=== PATIENT | female | born 1980 | race Caucasian/White ===

== ENCOUNTER 2017-12-24 12:19 | Emergency (ER) | payer BC, OTHER ==
[2017-12-24] MEDS ORDERED: Tetan/Diph/Pertus SYR(Tdap)* 0.5 ML SYR(BOOSTRIX) use SYR IM ONE (14:01)
[2017-12-24] MEDS ORDERED: Ibuprofen TAB* 600 MG PO ONE (14:02)
--- NOTE | 2017-12-24 14:04 | UC ---
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 Patient has 4 puncture wounds in the mid center of her posterior right calf. Neuro motor and circulation is intact distally there is no active bleeding. She does have some swelling and bruising and tenderness at the site of the injury - History of Current Complaint Chief Complaint: UCBiteInjury Stated Complaint: DOG BITE/RT LEG Time Seen by Provider: 12/24/17 13:57 Hx Obtained From: Patient Hx Last Menstrual Period: 12/20/17 ?: No Pain Intensity: 6 Pain Scale Used: 0-10 Numeric Onset/Duration: Sudden Onset Type of Bite: Animal Has Animal Been Immunized?: Yes Character: Puncture Aggravating Factor(s): Exertion Alleviating Factor(s): Nothing Associated Signs And Symptoms: Positive: Swelling Hx of Bite: Unprovoked Animal Available for Observation: Yes Animal Control Notified: Yes - Allergies/Home Medications Allergies/Adverse Reactions: Allergies Allergy/AdvReac Type Severity Reaction Status Date / Time No Known Allergies Allergy Verified 12/24/17 13:35 Home Medications: Home Medications FLUoxetine CAP* [Prozac CAP*] 10 mg PO DAILY 12/24/17 [History Confirmed ] PMH/Surg Hx/FS Hx/Imm Hx Previously Healthy: Yes Psychological History: Anxiety - Surgical History Surgical History: None - Family History Known Family History: Positive: None - Social History Occupation: Employed Full-time Lives: With Family Alcohol Use: None Substance Use Type: None Smoking Status (MU): Former Smoker Type: Cigarettes Have You Smoked in the Last Year: No When Did the Patient Quit Smoking/Using Tobacco: 2013 Review of Systems Constitutional: Negative Skin: Other - puncture wounds to the back of her right calf from a dog bite Eyes: Negative ENT: Negative Respiratory: Negative Cardiovascular: Negative Gastrointestinal: Negative Genitourinary: Negative Motor: Negative Neurovascular: Negative Musculoskeletal: Negative Neurological: Negative Psychological: Negative Is Patient Immunocompromised?: No All Other Systems Reviewed And Are Negative: Yes Physical Exam Triage Information Reviewed: Yes Appearance: Well-Appearing, Well-Nourished, Pain Distress - mild Vital Signs: Initial Vital Signs Temp 97.9 F 12/24/17 13:35 Pulse 61 12/24/17 13:35 Resp 16 12/24/17 13:35 BP 117/75 12/24/17 13:35 Pulse Ox 100 12/24/17 13:35 Vital Signs Reviewed: Yes Eye Exam: Normal Eyes: Positive: Conjunctiva Clear ENT Exam: Normal ENT: Positive: Normal ENT inspection, Hearing grossly normal. Negative: Muffled voice, Hoarse voice, Dental tenderness Dental Exam: Normal Neck exam: Normal Neck: Positive: Supple, Nontender Respiratory Exam: Normal Respiratory: Positive: Chest non-tender, No respiratory distress, No accessory muscle use Cardiovascular Exam: Normal Cardiovascular: Positive: RRR, No Murmur, Pulses Normal, Brisk Capillary Refill Musculoskeletal Exam: Other Musculoskeletal: Positive: Strength Intact, ROM Intact, Edema @ - posterior right calf Neurological Exam: Normal Neurological: Positive: Alert, Muscle Tone Normal Psychological Exam: Normal Skin Exam: Other Skin: Positive: Other - 4 pucture wound with abrasion posterior of right calf Re-Evaluation - Re-Evaluation First Eval Change: Improved - wound cleaned, dressing applied, tetanus updated, augmentin, health department report made, warm compress, plan to follow with pcp Bite Injury Course/Dx - Course Course Of Treatment: up date tetanus, augmentin, dsd follow with pcp, health department to follow to assure the dog been vaccinated - Differential Dx/Diagnosis Provider Diagnoses: dog bite right posterior calf, tetanus updated Discharge - Sign-Out/Discharge Documenting (check all that apply): Discharge/Admit/Transfer - Discharge Plan Condition: Stable Disposition: HOME Prescriptions: Amoxicillin/Clavulanate TAB* [Augmentin TAB 875*] 875 mg PO BID #20 tab Ibuprofen [Ibu] 600 mg PO Q6HR PRN #30 tablet PRN Reason: Pain Patient Education Materials: Ibuprofen (By mouth), Diphtheria/Acellular Pertussis/Tetanus Booster Vaccine (By injection), Animal Bite (ED), Acute Wound Care (ED), Contusion in Adults (ED), Heat Pack Application (ED) Forms: *Work Release Referrals: Alanna Vanegas MD [Primary Care Provider] - If Needed - Billing Disposition and Condition Condition: STABLE Disposition: HOME
== END 2017-12-24 14:43 | disposition home or self-care (01) ==
LOC: UCCORT 12:19
DX: S81.851A Open bite, right lower leg, initial encounter (principal); W54.0XXA Bitten by dog, initial encounter; Y92.9 Unspecified place or not applicable; Z87.891 Personal history of nicotine dependence; Z23 Encounter for immunization
CPT/HCPCS: 90471; 90715; 99203; A9270-GY; G0463